=== PATIENT | male | born 1955 | race Hispanic/Latino ===

== ENCOUNTER 2018-11-29 05:30 | Day surgery (SDC) | payer OTHER ==
[2018-11-29] MEDS ORDERED: PROPOFOL 10 MG/ML 20ML VIAL IV ONE (07:01)
[2018-11-29] MEDS ORDERED: LIDOCAINE HCL 1% 20 ML VIAL ONE (07:01)
[2018-11-29 07:36] VITALS: BP 125/71
[2018-11-29 07:41] VITALS: BP 117/59
[2018-11-29 07:46] VITALS: BP 117/88
[2018-11-29 07:51] VITALS: BP 128/86
[2018-11-29 07:56] VITALS: BP 117/90
== END 2018-11-29 08:02 | disposition home or self-care (01) ==
LOC: DAH 05:30
PROVIDERS: ATTEND Internal Medicine
DX: Z12.11 Encounter for screening for malignant neoplasm of colon (principal); D12.3 Benign neoplasm of transverse colon; D12.5 Benign neoplasm of sigmoid colon; D12.4 Benign neoplasm of descending colon; K62.1 Rectal polyp; K57.30 Diverticulosis of large intestine without perforation or abscess without bleeding; K64.1 Second degree hemorrhoids; I10 Essential (primary) hypertension; E78.5 Hyperlipidemia, unspecified; E66.01 Morbid (severe) obesity due to excess calories; Z79.899 Other long term (current) drug therapy; Z79.01 Long term (current) use of anticoagulants; Z72.89 Other problems related to lifestyle; Z68.41 Body mass index [BMI] 40.0-44.9, adult; Z83.3 Family history of diabetes mellitus
CPT/HCPCS: 45380; 45385; 88305; A4606; J2704